=== PATIENT | female | born 1950 | race Hispanic/Latino ===

== ENCOUNTER 2021-06-01 06:45 | Inpatient (IN) | payer OTHER ==
[~2021-06-01] VITALS: Ht 157.5 cm; Wt 86.2 kg
[2021-06-01 07:47] LABS: BASOPHILS % (AUTO) 0.2 % (0.0-5.0); EOSINOPHILS % (AUTO) 0.9 % (0.0-8.0); LYMPHOCYTES % (AUTO) 54.7 % (21.0-51.0); MEAN CORPUSCULAR HEMOGLOBIN 27.3 pg (27.0-33.0); MEAN CORPUSCULAR HGB CONC 30.8 g/dL (32.0-36.0); MEAN CORPUSCULAR VOLUME 88.5 fL (79-99); MONOCYTES % (AUTO) 12.1 % (3.0-13.0); NEUTROPHILS % (AUTO) 30.8 % (40.0-77.0); PLATELET COUNT (AUTO) 428 K/uL (130-400); RED BLOOD CELL COUNT(AUTO) 4.18 MIL/uL (4.00-5.50); RED CELL DISTRIBUTION WIDTH 13.9 % (11.0-15.5); WHITE BLOOD COUNT (AUTO) 5.5 K/uL (4.8-10.8)
[2021-06-01 07:48] LABS: APPEARANCE,URINE Clear (CLEAR); BILIRUBIN,URINE Negative (NEGATIVE); COLOR,URINE Yellow (YELLOW); GLUCOSE, URINE (UA) Negative (NEGATIVE); KETONES,URINE Negative (NEGATIVE); LEUKOCYTE ESTERASE ,URINE Moderate (NEGATIVE); NITRATE,URINE Negative (NEGATIVE); OCCULT BLOOD,URINE Negative (NEGATIVE); PROTEIN,URINE Negative (NEGATIVE)
[2021-06-01 08:08] LABS: ALBUMIN 2.8 g/dL (3.5-5.0); BILIRUBIN,TOTAL 0.2 mg/dL (0.2-1.0); CREATININE 0.7 mg/dL (0.5-1.5); POTASSIUM 3.6 mmol/L (3.5-5.1); TOTAL PROTEIN, SERUM 7.7 g/dL (6.0-8.3)
[2021-06-01 08:15] LABS: BACTERIA,URINE Few /HPF (None Seen)
[2021-06-01] MEDS ORDERED: FENTANYL CITRATE PF 50 MCG/1 ML 2ML VIAL IVP ONE (08:30)
[2021-06-01] MEDS ORDERED: ONDANSETRON 4MG INJ IVP ONE (08:30)
[2021-06-01] MEDS ORDERED: LACTATED RINGERS 1000ML 1,000 ML IV ONE (14:00)
[2021-06-01] MEDS ORDERED: LACTULOSE 20 GM/30 ML UDCUP PO PRN (14:00)
[2021-06-01] MEDS ORDERED: METF-446 PO (14:22)
[2021-06-01] MEDS ORDERED: LOSA50TA64 PO (14:23)
[2021-06-01] MEDS: ZOSYN 3.375GM +NS 50ML IV SCH ×2 (14:26→21:28)
[2021-06-01 17:00] VITALS: BP 94/55
[2021-06-01 20:36] VITALS: BP 135/68
[2021-06-02 00:36] VITALS: BP 101/58
[2021-06-02 04:36] VITALS: BP 123/71
[2021-06-02] MEDS: ZOSYN 3.375GM +NS 50ML IV SCH ×3 (05:19→22:10)
[2021-06-02 05:32] LABS: BASOPHILS % (AUTO) 0.5 % (0.0-5.0); EOSINOPHILS % (AUTO) 1.8 % (0.0-8.0); HEMATOCRIT 37.9 % (36-48); LYMPHOCYTES % (AUTO) 44.4 % (21.0-51.0); MEAN CORPUSCULAR HEMOGLOBIN 27.3 pg (27.0-33.0); MEAN CORPUSCULAR HGB CONC 29.8 g/dL (32.0-36.0); MEAN CORPUSCULAR VOLUME 91.5 fL (79-99); MONOCYTES % (AUTO) 11.4 % (3.0-13.0); NEUTROPHILS % (AUTO) 40.6 % (40.0-77.0); PLATELET COUNT (AUTO) 385 K/uL (130-400); RED BLOOD CELL COUNT(AUTO) 4.14 MIL/uL (4.00-5.50); RED CELL DISTRIBUTION WIDTH 13.8 % (11.0-15.5); WHITE BLOOD COUNT (AUTO) 3.9 K/uL (4.8-10.8)
[2021-06-02 05:47] LABS: CREATININE 0.8 mg/dL (0.5-1.5); POTASSIUM 3.9 mmol/L (3.5-5.1)
[2021-06-02 08:00] VITALS: BP 109/64
[2021-06-02 11:59] VITALS: BP 135/74
[2021-06-02 16:00] VITALS: BP 121/60
[2021-06-02] MEDS ORDERED: ONDANSETRON 4MG INJ IVP PRN (19:00)
[2021-06-02 20:16] VITALS: BP 129/68
[2021-06-03 00:16] VITALS: BP 104/60
[2021-06-03 04:16] VITALS: BP 98/57
[2021-06-03] MEDS: ZOSYN 3.375GM +NS 50ML IV SCH ×3 (06:37→20:56)
[2021-06-03 08:19] VITALS: BP 111/66
[2021-06-03 10:10] LABS: BASOPHILS % (AUTO) 0.4 % (0.0-5.0); EOSINOPHILS % (AUTO) 0.7 % (0.0-8.0); HEMATOCRIT 41.3 % (36-48); LYMPHOCYTES % (AUTO) 47.3 % (21.0-51.0); MEAN CORPUSCULAR HEMOGLOBIN 27.5 pg (27.0-33.0); MEAN CORPUSCULAR HGB CONC 31.2 g/dL (32.0-36.0); MEAN CORPUSCULAR VOLUME 88.1 fL (79-99); MONOCYTES % (AUTO) 8.5 % (3.0-13.0); NEUTROPHILS % (AUTO) 42.7 % (40.0-77.0); PLATELET COUNT (AUTO) 417 K/uL (130-400); RED BLOOD CELL COUNT(AUTO) 4.69 MIL/uL (4.00-5.50); RED CELL DISTRIBUTION WIDTH 13.8 % (11.0-15.5); WHITE BLOOD COUNT (AUTO) 4.5 K/uL (4.8-10.8)
[2021-06-03 10:26] LABS: BILIRUBIN,TOTAL 0.2 mg/dL (0.2-1.0); CREATININE 0.9 mg/dL (0.5-1.5); MAGNESIUM 2.3 mg/dL (1.80-2.40); POTASSIUM 3.5 mmol/L (3.5-5.1); TOTAL PROTEIN, SERUM 8.4 g/dL (6.0-8.3)
[2021-06-03 12:00] VITALS: BP 110/63
[2021-06-03] MEDS: 0.9%NACL 1000ML 1,000 ML IV SCH (14:20)
[2021-06-03 16:00] VITALS: BP 121/71
[2021-06-03 20:00] VITALS: BP 100/57
[2021-06-04] VITALS: BP 114/61
[2021-06-04 04:00] VITALS: BP 116/58
[2021-06-04] MEDS: 0.9%NACL 1000ML 1,000 ML IV SCH (04:54)
[2021-06-04] MEDS: ZOSYN 3.375GM +NS 50ML IV SCH (05:54)
[2021-06-04 06:52] LABS: BASOPHILS % (AUTO) 0.2 % (0.0-5.0); EOSINOPHILS % (AUTO) 1.2 % (0.0-8.0); HEMATOCRIT 36.8 % (36-48); LYMPHOCYTES % (AUTO) 53.8 % (21.0-51.0); MEAN CORPUSCULAR HEMOGLOBIN 27.5 pg (27.0-33.0); MEAN CORPUSCULAR VOLUME 88.7 fL (79-99); MONOCYTES % (AUTO) 8.9 % (3.0-13.0); NEUTROPHILS % (AUTO) 35.7 % (40.0-77.0); PLATELET COUNT (AUTO) 330 K/uL (130-400); RED BLOOD CELL COUNT(AUTO) 4.15 MIL/uL (4.00-5.50); RED CELL DISTRIBUTION WIDTH 13.6 % (11.0-15.5)
[2021-06-04 07:01] LABS: CREATININE 0.7 mg/dL (0.5-1.5); POTASSIUM 3.8 mmol/L (3.5-5.1)
[2021-06-04 08:12] VITALS: BP 119/65
[2021-06-04 12:00] VITALS: BP 105/55
[2021-06-04 16:00] VITALS: BP 125/66
== END 2021-06-04 19:30 | disposition home or self-care (01) | DRG 445 ==
LOC: EDH 06:45 → EDHIP 13:57 → UNDOADMIN 13:57 → 3DH 16:25
PROVIDERS: ADMIT Internal Medicine; ATTEND Internal Medicine
DX: K82.8 Other specified diseases of gallbladder (principal); E44.0 Moderate protein-calorie malnutrition; E87.1 Hypo-osmolality and hyponatremia; E11.9 Type 2 diabetes mellitus without complications; I10 Essential (primary) hypertension; K59.00 Constipation, unspecified; E78.5 Hyperlipidemia, unspecified; E78.00 Pure hypercholesterolemia, unspecified; E86.1 Hypovolemia; N19 Unspecified kidney failure; Z68.34 Body mass index [BMI] 34.0-34.9, adult; Z80.49 Family history of malignant neoplasm of other genital organs
CPT/HCPCS: 36415; 74176; 76705; 78227; 80048; 80053; 81001; 82550; 82948; 83036; 83605; 83690; 83735; 84145; 84443; 84484; 85025; 87088; 93005; A9537; G0378; J2405; J2543; J3010; J7030; J7120

== ENCOUNTER 2021-07-09 06:39 | Day surgery (SDC) | payer OTHER ==
[2021-07-06 10:47] LABS: BASOPHILS % (AUTO) 0.4 % (0.0-5.0); EOSINOPHILS % (AUTO) 1.2 % (0.0-8.0); HEMATOCRIT 36.7 % (36-48); LYMPHOCYTES % (AUTO) 45.9 % (21.0-51.0); MEAN CORPUSCULAR HEMOGLOBIN 26.4 pg (27.0-33.0); MEAN CORPUSCULAR HGB CONC 30.8 g/dL (32.0-36.0); MEAN CORPUSCULAR VOLUME 85.7 fL (79-99); MONOCYTES % (AUTO) 8.3 % (3.0-13.0); PLATELET COUNT (AUTO) 300 K/uL (130-400); RED BLOOD CELL COUNT(AUTO) 4.28 MIL/uL (4.00-5.50); RED CELL DISTRIBUTION WIDTH 14.1 % (11.0-15.5); WHITE BLOOD COUNT (AUTO) 5.7 K/uL (4.8-10.8)
[2021-07-06 10:53] LABS: CREATININE 0.6 mg/dL (0.5-1.5)
[2021-07-08 08:58] VITALS: BP 193/71
[2021-07-09] VITALS (18 sets, daily range): BP systolic 140–161; BP diastolic 64–81
[~2021-07-09] VITALS: Ht 152.4 cm; Wt 70.3 kg
[~2021-07-09 06:39] MED LIST: CEFAZOLIN SODIUM 1 GM VIAL IVP SCH; METF-446 PO
[2021-07-09] MEDS ORDERED: 0.9%NACL 1000ML 1,000 ML IV ONE (06:46)
[2021-07-09] MEDS ORDERED: CEFAZOLIN SODIUM 1 GM VIAL ONE (06:46)
[2021-07-09] MEDS ORDERED: BUPIVACAINE/PF 0.5% 30ML VIAL ONE (07:21)
[2021-07-09] MEDS ORDERED: LIDOCAINE HCL 1% MDV 50ML VIAL ONE (07:21)
[2021-07-09] MEDS ORDERED: FENTANYL CITRATE PF 50 MCG/1 ML 2ML VIAL ONE ×2 (07:28→09:40)
[2021-07-09] MEDS ORDERED: MIDAZOLAM HCL 1 MG/ML 2ML VIAL ONE (07:28)
[2021-07-09] MEDS ORDERED: ROCURONIUM 10MG/1ML SYR 10 MG/ML ML ONE ×2 (07:28→10:24)
[2021-07-09] MEDS ORDERED: LIDOCAINE PF 100MG/5ML (2%) SYRINGE 5ML ONE (07:28)
[2021-07-09] MEDS ORDERED: PROPOFOL 10 MG/ML 20ML VIAL IV ONE (07:28)
[2021-07-09] MEDS ORDERED: CEFAZOLIN SODIUM 2 GM VIAL IV ONE (09:00)
[2021-07-09] MEDS ORDERED: ONDANSETRON 4MG INJ ONE (09:05)
[2021-07-09] MEDS ORDERED: DEXAMETHASONE SOD PHOSPHATE 4 MG/ML 1ML VIAL ONE (09:05)
[2021-07-09] MEDS ORDERED: 0.9%NACL 10ML VIAL ONE (09:49)
[2021-07-09] MEDS ORDERED: PHENYLEPHRINE HCL 10 MG/ML 1ML VIAL IV ONE (09:49)
[2021-07-09] MEDS ORDERED: GLYCOPYRROLATE 1 MG/5 ML SYRINGE ONE (10:35)
[2021-07-09] MEDS ORDERED: NEOSTIGMINE 5MG/5ML SYR IV ONE (10:35)
[2021-07-09] MEDS ORDERED: KETOROLAC 30MG VIAL (30MG/ML) ONE (10:36)
[2021-07-09] MEDS ORDERED: IPRATROPIUM/ALBUTEROL SULFATE 3 ML SOLUTION IH ONE (11:55)
== END 2021-07-09 13:10 | disposition home or self-care (01) ==
LOC: DAH 06:39
PROVIDERS: ATTEND Student in an Organized Health Care Education/Training Program
DX: K82.8 Other specified diseases of gallbladder (principal); Z20.822 Contact with and (suspected) exposure to COVID-19; K81.1 Chronic cholecystitis; I10 Essential (primary) hypertension; E11.9 Type 2 diabetes mellitus without complications; E78.00 Pure hypercholesterolemia, unspecified; M81.0 Age-related osteoporosis without current pathological fracture; Z98.890 Other specified postprocedural states; Z98.891 History of uterine scar from previous surgery; Z79.84 Long term (current) use of oral hypoglycemic drugs; Z80.49 Family history of malignant neoplasm of other genital organs; Z79.899 Other long term (current) drug therapy
CPT/HCPCS: 36415; 47562; 80048; 82948 ×2; 85025; 87426; 93005; 94640; A4215; A4221; A4222; A4223; A4649 ×2; A4663; A6260; C1769 ×3; G0168; J0690 ×2; J1100; J1885; J2001; J2250; J2370; J2405; J2704; J2710; J3010 ×2; J3490 ×3; J7030 ×2

== ENCOUNTER 2022-01-02 22:55 | Emergency (ER) | payer OTHER ==
[~2022-01-02] VITALS: Ht 152.4 cm; Wt 71.2 kg
[~2022-01-02 22:55] MED LIST changes: -CEFAZOLIN SODIUM 1 GM VIAL IVP SCH
[2022-01-02] MEDS ORDERED: SOLU-MEDROL 125MG VIAL IM ONE (23:30)
[2022-01-02] MEDS ORDERED: FAMOTIDINE 20MG TAB PO ONE (23:30)
[2022-01-02] MEDS ORDERED: DIPHENHYDRAMINE HCL 25 MG CAPSULE PO ONE (23:30)
[2022-01-02 23:38] LABS: BASOPHILS % (AUTO) 0.2 % (0.0-5.0); EOSINOPHILS % (AUTO) 0.5 % (0.0-8.0); HEMATOCRIT 41.4 % (36-48); LYMPHOCYTES % (AUTO) 30.3 % (21.0-51.0); MEAN CORPUSCULAR HEMOGLOBIN 29.3 pg (27.0-33.0); MEAN CORPUSCULAR HGB CONC 33.6 g/dL (32.0-36.0); MEAN CORPUSCULAR VOLUME 87.2 fL (79-99); MONOCYTES % (AUTO) 6.1 % (3.0-13.0); NEUTROPHILS % (AUTO) 62.4 % (40.0-77.0); PLATELET COUNT (AUTO) 284 K/uL (130-400); RED BLOOD CELL COUNT(AUTO) 4.75 MIL/uL (4.00-5.50); RED CELL DISTRIBUTION WIDTH 13.1 % (11.0-15.5); WHITE BLOOD COUNT (AUTO) 6.1 K/uL (4.8-10.8)
[2022-01-02 23:45] LABS: CARBON DIOXIDE 28 mmol/L (21-32); CHLORIDE 96 mmol/L (101-111); CREATININE 0.8 mg/dL (0.5-1.5); GLOMERULAR FILTR. RATE CALC 75 mL/min (>60); GLUCOSE,RANDOM 141 mg/dL (70-105); POTASSIUM 3.9 mmol/L (3.5-5.1); SODIUM SERUM 129 mmol/L (136-145); UREA NITROGEN, BLOOD 10 mg/dL (7-18)
[2022-01-02 23:49] LABS: ALANINE AMINOTRANSFERASE 34 U/L (12-78); ALBUMIN 3.2 g/dL (3.5-5.0); ASPARTATE AMINOTRANSFERASE 41 U/L (10-37); TOTAL PROTEIN, SERUM 9.8 g/dL (6.0-8.3)
[2022-01-03] MEDS ORDERED: PRED50TA2 PO (01:42)
[2022-01-03 01:49] VITALS: BP 140/68
== END 2022-01-03 01:55 | disposition home or self-care (01) ==
LOC: EDH 22:55
DX: I77.6 Arteritis, unspecified (principal); E11.9 Type 2 diabetes mellitus without complications; I10 Essential (primary) hypertension; E78.5 Hyperlipidemia, unspecified; Z79.84 Long term (current) use of oral hypoglycemic drugs; Z98.890 Other specified postprocedural states
CPT/HCPCS: 99283; 80053; 85025; 85651; 87040 ×2; 82948; 83605; 36415; 96372; Q0163; J2930

== ENCOUNTER → 2022-07-21 | Outpatient (CLI) | payer OTHER ==
[~2022-07-21] MED LIST changes: +PRED50TA2 PO
== END | disposition home or self-care (01) ==
LOC: RAH 14:59
PROVIDERS: ATTEND Student in an Organized Health Care Education/Training Program
DX: Z12.31 Encounter for screening mammogram for malignant neoplasm of breast (principal)
CPT/HCPCS: 77067